=== PATIENT | male | born 1965 | race American Indian/Alaskan Native ===

== ENCOUNTER 2018-01-31 07:50 | Day surgery (SDC) | payer MEDICAID ==
[2018-01-31 08:08] VITALS: BMI 34.2
[2018-01-31] MEDS ORDERED: Propofol 10 mg/ml Inj (20 ML) ONE (08:42)
--- NOTE | 2018-01-31 09:05 | CP.SDSHP ---
Same Day Surgery H & P - History Proposed Procedure: colonoscopy - Previous Medical/Surgical History Previous Surgical History: appendectomy - Allergies Allergies: Allergies No Known Allergies Allergy (Verified 01/31/18 08:08) - Physical Exam Vital Signs: Vital Signs 01/31/18 08:26 Temperature 97.4 F L Pulse Rate 67 Respiratory 19 Rate Blood Pressure 149/82 - Date & Time Date: 01/31/18 Time: 09:05 Short Stay Discharge - Short Stay Discharge Admitting Diagnosis/Reason for Visit: ENCOUNTER FOR SCREENING FOR MALIGNANT NEOPLASM OF Disposition: HOME/ ROUTINE
[2018-01-31 09:10] VITALS: O2SAT 100
[2018-01-31 09:45] VITALS: TEMP 98
[2018-01-31 10:21] VITALS: BP 118/70; PULSE 58; RESP 12
== END 2018-01-31 10:30 | disposition home or self-care (01) ==
LOC: C.ENDO 07:50
PROVIDERS: ATTEND Colon & Rectal Surgery
DX: Z12.11 Encounter for screening for malignant neoplasm of colon (principal); D12.0 Benign neoplasm of cecum; K58.9 Irritable bowel syndrome, unspecified
CPT/HCPCS: 45380; 88305; J2001; J2704